=== PATIENT | male | born 2000 ===

== ENCOUNTER 2019-07-19 12:57 | Emergency (ER) | payer OTHER ==
[~2019-07-19] VITALS: Ht 190.5 cm; Wt 83.9 kg
== END 2019-07-19 14:00 | disposition home or self-care (01) ==
LOC: ER 12:57
DX: S61.225A Laceration with foreign body of left ring finger without damage to nail, initial encounter (principal); W26.0XXA Contact with knife, initial encounter; Y93.89 Activity, other specified; Y92.090 Kitchen in other non-institutional residence as the place of occurrence of the external cause; Y99.8 Other external cause status